=== PATIENT | female | born 1940 | race Caucasian/White ===

== ENCOUNTER 2017-05-07 14:08 | Day surgery (SDC) | payer MEDICARE ==
[~2017-05-07] VITALS: Ht 162.6 cm; Wt 94.0 kg
[~2017-05-07 14:08] MED LIST: ALBU90OI INH; ALBUIS INH; AMLO5 PO; ASPI81CH PO; CITA20 PO; FLUSAL2505 INH; Flonase 0.05% N16 GM; HYDCHL25 PO; LEVSOD100 PO; LISI5 PO; LOVA20 PO; OMEP20ER PO
[2017-05-07] MEDS ORDERED: DOC250 PO (14:26)
[2017-05-07] MEDS ORDERED: Advair Hfa 230-12 GM (14:33)
== END 2017-05-07 17:15 | disposition home or self-care (01) ==
LOC: ORSCSDS 14:08
PROVIDERS: Ophthalmology
PROC: 081X0J3 Bypass Right Lacrimal Duct to Nasal Cavity with Synthetic Substitute, Open Approach (ICD-10-PCS; principal; 2017-05-07 15:30)
DX: H04.551 Acquired stenosis of right nasolacrimal duct (principal); I10 Essential (primary) hypertension; J44.9 Chronic obstructive pulmonary disease, unspecified; K21.9 Gastro-esophageal reflux disease without esophagitis; E03.9 Hypothyroidism, unspecified; E66.01 Morbid (severe) obesity due to excess calories; Z68.35 Body mass index [BMI] 35.0-35.9, adult; Z79.82 Long term (current) use of aspirin; Z79.899 Other long term (current) drug therapy; Z87.891 Personal history of nicotine dependence
CPT/HCPCS: J0171; J1100; J1885; J2405; J7040

== ENCOUNTER → 2017-09-17 | Outpatient (CLI) | payer MEDICARE ==
[~2017-09-17] MED LIST changes: +Advair Hfa 230-12 GM; +DOC250 PO
== END | disposition home or self-care (01) ==
LOC: LAB SHORT 16:44 → LAB 16:44
PROVIDERS: Nurse Practitioner Women's Health
DX: Z12.4 Encounter for screening for malignant neoplasm of cervix (principal); Z91.89 Other specified personal risk factors, not elsewhere classified
CPT/HCPCS: 87624; G0123